=== PATIENT | male | born 1950 | race Caucasian/White ===

== ENCOUNTER → 2017-02-11 | Outpatient (CLI) | payer MEDICARE ==
[2015-11-13 17:10] VITALS: BP 118/63
[~2017-02-11] MED LIST: ASPI-482 PO; LISI10TA2 PO; MULT-208 PO
--- NOTE | 2017-02-11 09:51 | KCIC ---
5 view lumbar spine dated 02/11/2017. No comparison available. Clinical indication: Low back pain for months. FINDINGS: AP, lateral, bilateral black and coned-down views of lumbosacral junction were obtained. 5 nonrib-bearing vertebral levels. Vertebral body heights are maintained. Mild disc space narrowing at L4-L5. Mild hypertrophic change of the superior and inferior endplates throughout. Moderate arthrosis lower lumbar apophyseal joints. No pars defects on the oblique views. IMPRESSION: 1. No acute radiographic abnormality. 2. Mild multilevel spondylosis. Electronically signed by: Wilian Moreno MD (02/11/2017 9:48 AM) [facility]
== END | disposition home or self-care (01) ==
LOC: KCIC 09:02
PROVIDERS: ATTEND Family Medicine
DX: M47.896 Other spondylosis, lumbar region (principal)
CPT/HCPCS: 72110

== ENCOUNTER → 2017-10-24 | Outpatient (CLI) | payer MEDICARE ==
[2017-10-24] MEDS: ZOLPIDEM 5 MG TABLET. PO (22:01)
== END | disposition home or self-care (01) ==
LOC: SLPLAB 18:27
DX: G47.33 Obstructive sleep apnea (adult) (pediatric) (principal)
CPT/HCPCS: 95810

== ENCOUNTER → 2018-07-05 | Outpatient (CLI) | payer MEDICARE ==
[2015-11-13 17:10] VITALS: BP 118/63
--- NOTE | 2018-07-05 14:33 | CARD ---
MR#: [id number] Date of Study: 07/05/2018 Ordering Physician: MARCOS BROWN, Referring Physician: MARCOS BROWN, Tech: Mago Espinoza APPROVED REPORT EXAM: Two-dimensional and M-mode echocardiogram with Doppler and color Doppler. Other Information Quality : AverageHR: 66bpm INDICATION Arrhythmia Hypertension/HCVD RISK FACTORS Hypertension Hyperlipidemia 2D DIMENSIONS RVDd3.4 (2.9-3.5cm)Left Atrium(2D)2.7 (1.6-4.0cm) IVSd0.9 (0.7-1.1cm)Aortic Root(2D)3.4 (2.0-3.7cm) LVDd4.5 (3.9-5.9cm)LVOT Diameter2.2 (1.8-2.4cm) PWd1.0 (0.7-1.1cm)LVDs2.5 (2.5-4.0cm) FS (%) 43.5 %SV68.1 ml Aortic Valve AoV Peak Marco.126.9cm/sAoV VTI26.4cm AO Peak GR.6.4mmHgLVOT Peak Marco.76.6cm/s LVOT VTI 17.10cmAO Mean GR.3mmHg COLETTE (VMAX)1.99hj0SWR (VTI)2.36cm2 Mitral Valve MV E Eslktfaf59.6cm/sMV DECEL TKWR212yu MV A Vfnrdyqs11.2cm/sMV YTA18td E/A Ratio0.8MVA (PHT)3.87cm2 TDI E/Lateral E'7.2E/Medial E'8.2 Pulmonary Valve PV Peak Bybxegtz952.4cm/sPV Peak Grad.5mmHg Tricuspid Valve TR P. Usbtbnob988ez/sRAP XYIOIHSF9vdQy TR Peak Gr.04hcBzGRWH27mnNh Pulmonary Vein S1 Izkshquo84.7cm/sD2 Frijpqzx19.7cm/s PVa xhhpwvyf126thdf LEFT VENTRICLE The left ventricle is normal size. There is normal left ventricular wall thickness. The left ventricu lar systolic function is normal and the ejection fraction is within normal range. The Ejection Fracti on is 50-55%. There is normal LV segmental wall motion. Transmitral Doppler flow pattern is Grade I-a bnormal relaxation pattern. RIGHT VENTRICLE The right ventricle is borderline dilated. There is normal right ventricular wall thickness. There is a possible device lead in the right ventricle. ATRIA The left atrium size is normal. The right atrium size is normal. The interatrial septum is intact wit h no evidence for an atrial septal defect or patent foramen ovale as noted on 2-D or Doppler imaging. AORTIC VALVE The aortic valve is normal in structure and function. Doppler and Color Flow revealed no significant aortic regurgitation. There is no significant aortic valvular stenosis. Calculated aortic valve area is 2.4 cm2 with maximum pressure gradient of 7 mmHg and mean pressure gradient of 4 mmHg. MITRAL VALVE The mitral valve is normal in structure and function. There is no evidence of mitral valve prolapse. There is no mitral valve stenosis. Doppler and Color-flow revealed trace mitral regurgitation. TRICUSPID VALVE The tricuspid valve is normal in structure and function. Doppler and Color Flow revealed trace tricus pid regurgitation. There is no tricuspid valve stenosis. PULMONIC VALVE The pulmonic valve is not well visualized. Doppler and Color Flow revealed trace pulmonic valvular re gurgitation. GREAT VESSELS The aortic root is normal in size. The IVC is normal in size and collapses >50% with inspiration. PERICARDIAL EFFUSION There is no evidence of significant pericardial effusion. Critical Notification Critical Value: No <Conclusion> The left ventricle is normal size. The left ventricular systolic function is normal and the ejection fraction is within normal range. The Ejection Fraction is 50-55%. There is no significant aortic valvular stenosis. Doppler and Color Flow revealed no significant aortic regurgitation. Doppler and Color-flow revealed trace mitral regurgitation. Doppler and Color Flow revealed trace tricuspid regurgitation. Signed by : Hamlet Carter MD Electronically Approved : 07/05/2018 14:31:35
== END | disposition home or self-care (01) ==
LOC: ECHO 10:25
PROVIDERS: ATTEND Family Medicine
DX: I10 Essential (primary) hypertension (principal); G47.33 Obstructive sleep apnea (adult) (pediatric); I49.5 Sick sinus syndrome; E78.5 Hyperlipidemia, unspecified
CPT/HCPCS: 93306

== ENCOUNTER 2019-01-07 15:46 | Emergency (ER) | payer MEDICARE ==
[~2019-01-07] VITALS: Ht 172.7 cm; Wt 86.2 kg
[2019-01-07] MEDS ORDERED: IV NORMAL SALINE 1000ML BAG 1,000 ML IV SCH (15:56)
--- NOTE | 2019-01-07 16:05 | PHYS DOC ---
Past Medical History Past Medical History: High Cholesterol, Hypertension Past Surgical History: Pacemaker, Other Additional Past Surgical Histo: LEFT WRIST SURGERY Alcohol Use: Rarely Drug Use: None Adult General Chief Complaint Chief Complaint: SHORTNESS OF BREATH HPI HPI Patient is a 68-year-old male who presents to the emergency department for evaluation. He states for the past 2 days, he has had some increasing shortness of breath, along with some lightheadedness, described mostly as lightheadedness, and worsened with standing up from bending over position. He also describes an occasional sense of rotation. He denies any vision changes, numbness, weakness, headache, or chest pain. Has not had any definite pleuritic chest pain. He has not had any cough. Other than as stated above, there are no alleviating, or exacerbating factors to his symptoms. The patient has done some work outside yesterday and today in the heat, but only for about an hour at a time. Review of Systems Review of Systems Constitutional: Denies fever or chills [] Eyes: Denies change in visual acuity, redness, or eye pain [] HENT: Denies nasal congestion or sore throat [] Respiratory: Denies cough or pleuritic pain[] Cardiovascular: The patient denies any chest pain, palpitations, or orthopnea [] GI: Denies abdominal pain, nausea, vomiting, bloody stools or diarrhea [] : Denies dysuria or hematuria [] Musculoskeletal: Denies back pain or joint pain [] Integument: Denies rash or skin lesions [] Neurologic: Denies headache, focal weakness or sensory changes [] Endocrine: Denies polyuria or polydipsia [] All other systems were reviewed and found to be within normal limits, except as documented in this note. Current Medications Current Medications Current Medications Medications (Trade) Dose Ordered Sig/Lou Start Time Stop Time Status Last Admin Dose Admin Info (CONTRAST GIVEN -- Rx MONITORING) 1 each PRN DAILY PRN 01/07/19 17:45 01/09/19 17:44 Iohexol (Omnipaque 350 Mg/ml) 75 ml 1X ONCE 01/07/19 17:30 01/07/19 17:31 DC 01/07/19 18:13 75 ML Sodium Chloride 1,000 ml @ 1,000 mls/hr Q1H 01/07/19 15:56 01/07/19 16:55 DC 01/07/19 15:56 1,000 MLS/HR Allergies Allergies Allergies Coded Allergies Type Severity Reaction Last Updated Verified nitroglycerin Allergy Intermediate HYPOTENSION 11/12/15 Yes Physical Exam Physical Exam PHYSICAL EXAM: CONSTITUTIONAL: Well developed, well nourished HEAD: normocephalic, atraumatic EENT: PERRL, EOMI. Conjunctivae normal color, sclerae non-icteric; moist mucous membranes. NECK: Supple, non-tender; no meningismus. LUNGS: Lungs CTA, breathing even and unlabored. Normal air movement. HEART: Regular rate and rhythm, no murmur CHEST: No deformity; non-tender ABDOMEN: The abdomen is soft, and non-tender, no masses or bruits. EXTREM: Normal ROM; no deformity, no calf tenderness. Normal pulses palpable in all extremities. There is no pedal edema. SKIN: No rash; no diaphoresis NEURO: Alert; normal speech and cognition; CN's grossly intact; strength grossly intact without focal deficit. BACK: No CVA TTP. Current Patient Data Vital Signs Vital Signs Date Time Temp Pulse Resp B/P (MAP) Pulse Ox O2 Delivery O2 Flow Rate FiO2 01/07/19 18:44 62 16 130/62 (84) 99 Room Air 01/07/19 16:25 98.8 98.8 Lab Values Laboratory Tests Test 01/07/19 16:16 White Blood Count 12.3 x10^3/uL (4.0-11.0) H Red Blood Count 5.44 x10^6/uL (4.30-5.70) Hemoglobin 16.5 g/dL (13.0-17.5) Hematocrit 47.8 % (39.0-53.0) Mean Corpuscular Volume 88 fL (79-100) Mean Corpuscular Hemoglobin 30 pg (25-35) Mean Corpuscular Hemoglobin Concent 35 g/dL (31-37) Red Cell Distribution Width 14.2 % (11.5-14.5) Platelet Count 330 x10^3/uL (140-400) Neutrophils (%) (Auto) 65 % (31-73) Lymphocytes (%) (Auto) 26 % (24-48) Monocytes (%) (Auto) 6 % (0-9) Eosinophils (%) (Auto) 2 % (0-3) Basophils (%) (Auto) 1 % (0-3) Neutrophils # (Auto) 8.0 x10^3uL (1.8-7.7) H Lymphocytes # (Auto) 3.2 x10^3/uL (1.0-4.8) Monocytes # (Auto) 0.8 x10^3/uL (0.0-1.1) Eosinophils # (Auto) 0.3 x10^3/uL (0.0-0.7) Basophils # (Auto) 0.1 x10^3/uL (0.0-0.2) D-Dimer (Lois) 0.58 ug/mlFEU (0.00-0.50) H Sodium Level 142 mmol/L (136-145) Potassium Level 4.8 mmol/L (3.5-5.1) Chloride Level 107 mmol/L (98-107) Carbon Dioxide Level 25 mmol/L (21-32) Anion Gap 10 (6-14) Blood Urea Nitrogen 20 mg/dL (8-26) Creatinine 1.4 mg/dL (0.7-1.3) H Estimated GFR (Cockcroft-Gault) 50.5 BUN/Creatinine Ratio 14 (6-20) Glucose Level 146 mg/dL (70-99) H Calcium Level 9.7 mg/dL (8.5-10.1) Magnesium Level 2.3 mg/dL (1.8-2.4) Total Bilirubin 0.4 mg/dL (0.2-1.0) Aspartate Amino Transferase (AST) 32 U/L (15-37) Alanine Aminotransferase (ALT) 54 U/L (16-63) Alkaline Phosphatase 108 U/L (46-116) Troponin I Quantitative < 0.017 ng/mL (0.000-0.055) VD-Cpy-J-Type Natriuretic Peptide 26 pg/mL (0-124) Total Protein 6.9 g/dL (6.4-8.2) Albumin 3.9 g/dL (3.4-5.0) Albumin/Globulin Ratio 1.3 (1.0-1.7) Lipase 309 U/L (73-393) Thyroid Stimulating Hormone (TSH) 1.528 uIU/mL (0.358-3.74) Free Thyroxine 1.10 ng/dL (0.76-1.46) Laboratory Tests 01/07/19 16:16 Laboratory Tests 01/07/19 16:16 EKG EKG [Normal sinus rhythm with a normal rate, normal axis, normal intervals, there are no acute ischemic ST/T changes.] Radiology/Procedures Radiology/Procedures [PROCEDURE: PORTABLE CHEST 1V EXAM: CHEST 1 VIEW. HISTORY: Shortness of breath. COMPARISON: 11/12/2015. FINDINGS: A frontal view of the chest is obtained. A left-sided pacemaker has its leads in the right atrium and right ventricle. There are no confluent infiltrates. Linear opacities in the left base likely indicate atelectasis or scarring. There is no pneumothorax or pleural effusion. The heart is not enlarged. There are atherosclerotic calcifications of the aorta. IMPRESSION: 1. No confluent infiltrates. Mild left basilar atelectasis. ] PROCEDURE: CT ANGIOGRAPHY CHEST CTA Chest with contrast: Clinical History: Shortness of breath. Elevated d-dimer. Axial helical images of the chest were obtained after the administration of 75 cc of IV Omni 350 and timed appropriately for a pulmonary arterial study. Conventional axial reconstruction was performed in addition to coronal, sagittal and bilateral oblique MIP (maximum intensity projection). This study was ordered to detect possible pulmonary embolism. There are no filling defects to suggest pulmonary embolism. The ascending thoracic aorta is mildly dilated to 4.1 cm. There is no dissection thrombus or stenosis. There is mild dependent changes posteriorly in the lungs. There is no mediastinal or hilar lymphadenopathy. Impression: 1. No evidence of pulmonary embolism. 2. Dilated ascending thoracic aorta. Course & Med Decision Making Course & Med Decision Making Pertinent Labs and Imaging studies reviewed. (See chart for details) []7:00 PM: The patient's condition remains stable. He is feeling better at this time. I discussed the uncertain etiology of his symptoms, as well as incidental findings of a dilated ascending aorta and the need for close follow-up with his ui lead developer for further outpatient evaluation and management. We discussed return precautions in detail. Dragon Disclaimer Dragon Disclaimer This electronic medical record was generated, in whole or in part, using a voice recognition dictation system. Departure Departure Impression: Primary Impression: Fatigue Additional Impression: Malaise Disposition: 01 HOME, SELF-CARE Condition: STABLE Referrals: MARCOS BROWN MD (PCP) SARA STACY MD Patient Instructions: Dehydration, Adult, Fatigue, Weakness Additional Instructions: Drink plenty fluids. The CT scan done today showed dilation of the ascending aorta, and further evaluation as an outpatient is warranted to determine appropriate management. Please contact her ui lead developer for further follow-up. Problem Qualifiers SYBIL MACHADO MD Jan 07, 2019 16:05
[2019-01-07 16:22] LABS: BASO # 0.1 x10^3/uL (0.0-0.2); BASO % 1 % (0-3); EOS # 0.3 x10^3/uL (0.0-0.7); EOS % 2 % (0-3); HEMATOCRIT 47.8 % (39.0-53.0); HEMOGLOBIN 16.5 g/dL (13.0-17.5); LYMPH # 3.2 x10^3/uL (1.0-4.8); LYMPH % 26 % (24-48); MEAN CORPUSCULAR HEMOGLOBIN 30 pg (25-35); MEAN CORPUSCULAR HGB CONC 35 g/dL (31-37); MEAN CORPUSCULAR VOLUME 88 fL (79-100); MONO # 0.8 x10^3/uL (0.0-1.1); MONO % 6 % (0-9); NEUT % 65 % (31-73); PLATELET COUNT 330 x10^3/uL (140-400); RED BLOOD COUNT 5.44 x10^6/uL (4.30-5.70); RED CELL DISTRIBUTION WIDTH 14.2 % (11.5-14.5); WHITE BLOOD COUNT 12.3 x10^3/uL (4.0-11.0)
[2019-01-07 16:44] LABS: CALCIUM 9.7 mg/dL (8.5-10.1); CREATININE 1.4 mg/dL (0.7-1.3); GFR 50.5; POTASSIUM 4.8 mmol/L (3.5-5.1)
[2019-01-07 16:49] LABS: ALBUMIN 3.9 g/dL (3.4-5.0); ALBUMIN/GLOBULIN RATIO 1.3 (1.0-1.7); MAGNESIUM 2.3 mg/dL (1.8-2.4); TOTAL BILIRUBIN 0.4 mg/dL (0.2-1.0); TOTAL PROTEIN 6.9 g/dL (6.4-8.2)
[2019-01-07 16:56] LABS: FREE T4 1.1 ng/dL (0.76-1.46); THYROID STIM HORMONE (TSH) 1.528 uIU/mL (0.358-3.74)
--- NOTE | 2019-01-07 17:22 | RAD ---
EXAM: CHEST 1 VIEW. HISTORY: Shortness of breath. COMPARISON: 11/12/2015. FINDINGS: A frontal view of the chest is obtained. A left-sided pacemaker has its leads in the right atrium and right ventricle. There are no confluent infiltrates. Linear opacities in the left base likely indicate atelectasis or scarring. There is no pneumothorax or pleural effusion. The heart is not enlarged. There are atherosclerotic calcifications of the aorta. IMPRESSION: 1. No confluent infiltrates. Mild left basilar atelectasis. Electronically signed by: Gracy Guerra MD (01/07/2019 5:20 PM) [facility]
[2019-01-07] MEDS ORDERED: IOHEXOL 350 MG/ML 100 ML VIAL. IV ONE (17:30)
[2019-01-07] MEDS ORDERED: CONTRAST GIVEN. MC PRN (17:45)
--- NOTE | 2019-01-07 18:24 | EKG ---
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
--- NOTE | 2019-01-07 18:32 | RAD ---
CTA Chest with contrast: Clinical History: Shortness of breath. Elevated d-dimer. Axial helical images of the chest were obtained after the administration of 75 cc of IV Omni 350 and timed appropriately for a pulmonary arterial study. Conventional axial reconstruction was performed in addition to coronal, sagittal and bilateral oblique MIP (maximum intensity projection). This study was ordered to detect possible pulmonary embolism. There are no filling defects to suggest pulmonary embolism. The ascending thoracic aorta is mildly dilated to 4.1 cm. There is no dissection thrombus or stenosis. There is mild dependent changes posteriorly in the lungs. There is no mediastinal or hilar lymphadenopathy. Impression: 1. No evidence of pulmonary embolism. 2. Dilated ascending thoracic aorta. PQRS Compliance Statement: One or more of the following individualized dose reduction techniques were utilized for this examination: 1. Automated exposure control 2. Adjustment of the mA and/or kV according to patient size 3. Use of iterative reconstruction technique Electronically signed by: Ollie Dunn III, MD (01/07/2019 6:29 PM) [id number]
[2019-01-07 18:47] VITALS: BP 132/71
== END 2019-01-07 19:20 | disposition home or self-care (01) ==
LOC: ER 15:46
DX: R53.81 Other malaise (principal); R53.83 Other fatigue; R06.02 Shortness of breath; R42 Dizziness and giddiness; E78.00 Pure hypercholesterolemia, unspecified; I10 Essential (primary) hypertension; Z95.0 Presence of cardiac pacemaker; Z88.8 Allergy status to other drugs, medicaments and biological substances
CPT/HCPCS: 36415; 71045; 71275; 80053; 83690; 83735; 83880; 84439; 84443; 84484; 85025; 85379; 93005; 96360; 99285; J7030; Q9967

== ENCOUNTER → 2019-01-18 | Outpatient (CLI) | payer MEDICARE ==
[2019-01-07 18:47] VITALS: BP 132/71
--- NOTE | 2019-01-18 10:15 | RAD ---
SCAN OF ABDOMINAL AORTA History: Enlarged aorta on CT, hypertension, history of tobacco use Comparison: None. Findings: Multiple sonographic images of the abdominal aorta are submitted to include grayscale, color, and duplex spectral analysis waveform images. Maximal abdominal aortic caliber proximally is 2.4 cm, 1.9 cm near mid segment, and 1.5 cm distally. Right common iliac artery measured 0.9 cm, left 0.9 cm. There is scattered plaque. Patent inferior vena cava is visualized. Impression: 1. No abdominal aortic aneurysm is demonstrated. Electronically signed by: Jeff Salcido MD (01/18/2019 10:12 AM) [facility]
== END | disposition home or self-care (01) ==
LOC: US 06:36
PROVIDERS: ATTEND Family Medicine
DX: I70.8 Atherosclerosis of other arteries (principal); I77.89 Other specified disorders of arteries and arterioles; I10 Essential (primary) hypertension; Z72.0 Tobacco use
CPT/HCPCS: 76770

== ENCOUNTER → 2019-07-20 | Outpatient (CLI) | payer MEDICARE ==
--- NOTE | 2019-07-20 11:02 | CARD ---
MR#: [id number] Date of Study: 07/20/2019 Ordering Physician: SARA STACY, Referring Physician: SARA STACY, Tech: Ofe Antonio [facility] APPROVED REPORT EXAM: Two-dimensional and M-mode echocardiogram with Doppler and color Doppler. Other Information Quality : Good INDICATION Ascending Aortic Aneursym 2D DIMENSIONS RVDd3.0 (2.9-3.5cm)Left Atrium(2D)3.2 (1.6-4.0cm) IVSd1.3 (0.7-1.1cm)Aortic Root(2D)3.5 (2.0-3.7cm) LVDd3.9 (3.9-5.9cm)LVOT Diameter2.0 (1.8-2.4cm) PWd1.1 (0.7-1.1cm)LVDs2.1 (2.5-4.0cm) FS (%) 30.0 %SV51.1 ml LVEF(%)60.0 (>50%) Aortic Valve AoV Peak Marco.140.0cm/sAoV VTI27.1cm AO Peak GR.7.8mmHgLVOT Peak Marco.87.8cm/s AO Mean GR.4mmHgAVA (VMAX)2.00cm2 COLETTE (VTI)2.30cm2 Mitral Valve MV E Eijhbrjd63.3cm/sMV DECEL IWYZ570di MV A Imrgstcj842.2cm/sE/A Ratio0.7 Tricuspid Valve TR P. Impnznva958pa/sRAP DBYAILXP3rmHj TR Peak Gr.69gjCeNOLS83rhVe Pulmonary Vein S1 Eomxbvps17.9cm/sD2 Ctfmucmq47.3cm/s LEFT VENTRICLE The left ventricle is normal size. There is mild asymmetric septal hypertrophy. The left ventricular systolic function is normal and the ejection fraction is within normal range. The Ejection Fraction i s 55-60%. There is normal LV segmental wall motion. Transmitral Doppler flow pattern is Grade I-abnor mal relaxation pattern. RIGHT VENTRICLE The right ventricle is normal size. The right ventricular systolic function is normal. ATRIA The left atrium size is normal. The right atrium size is normal. The interatrial septum is intact wit h no evidence for an atrial septal defect or patent foramen ovale as noted on 2-D or Doppler imaging. AORTIC VALVE The aortic valve is probably trileaflet. Doppler and Color Flow revealed no significant aortic regurg itation. There is no significant aortic valvular stenosis. MITRAL VALVE The mitral valve is normal in structure and function. There is no evidence of mitral valve prolapse. There is no mitral valve stenosis. Doppler and Color-flow revealed trace mitral regurgitation. TRICUSPID VALVE The tricuspid valve is normal in structure and function. Doppler and Color Flow revealed trace to mil d tricuspid regurgitation. The PA pressure was estimated at 15 mmHg. There is no tricuspid valve sten osis. PULMONIC VALVE The pulmonic valve is not well visualized. Doppler and Color Flow revealed trace pulmonic valvular re gurgitation. There is no pulmonic valvular stenosis. GREAT VESSELS The aortic root is normal in size. The ascending aorta is moderately dilated at 4.1 cm. The IVC is no rmal in size and collapses >50% with inspiration. PERICARDIAL EFFUSION There is no evidence of significant pericardial effusion. Critical Notification Critical Value: No <Conclusion> The left ventricular systolic function is normal and the ejection fraction is within normal range. Th e Ejection Fraction is 55-60%. There is normal LV segmental wall motion. The ascending aorta is moderately dilated at 4.1 cm. Signed by : Sara Stacy, Electronically Approved : 07/20/2019 11:02:10
== END | disposition home or self-care (01) ==
LOC: ECHO 09:18
PROVIDERS: ATTEND Internal Medicine Cardiovascular Disease
DX: I36.1 Nonrheumatic tricuspid (valve) insufficiency (principal); I51.7 Cardiomegaly; I71.2 Thoracic aortic aneurysm, without rupture
CPT/HCPCS: 93306

== ENCOUNTER → 2020-10-21 | Outpatient (CLI) | payer MEDICARE ==
[~2020-10-21] MED LIST changes: +LISI10TA16 PO; -LISI10TA2 PO
--- NOTE | 2020-10-21 11:56 | CARD ---
MR#: [id number] Date of Study: 10/21/2020 Ordering Physician: SARA STACY, Referring Physician: SARA STACY, Tech: Mindy Kiran [facility] APPROVED REPORT EXAM: Two-dimensional and M-mode echocardiogram with Doppler and color Doppler. Other Information Quality : GoodHR: 71bpm Rhythm : NSR INDICATION Hypertension/HCVD RISK FACTORS Hypertension Hyperlipidemia 2D DIMENSIONS RVDd2.9 (2.9-3.5cm)Left Atrium(2D)3.1 (1.6-4.0cm) IVSd1.1 (0.7-1.1cm)Aortic Root(2D)3.8 (2.0-3.7cm) LVDd4.3 (3.9-5.9cm)LVOT Diameter1.9 (1.8-2.4cm) PWd1.2 (0.7-1.1cm)LVDs2.6 (2.5-4.0cm) FS (%) 38.1 %SV55.7 ml LVEF(%)68.6 (>50%) Aortic Valve AoV Peak Marco.126.6cm/sAoV VTI36.5cm AO Peak GR.6.4mmHgLVOT Peak Marco.72.8cm/s AO Mean GR.3mmHgAVA (VMAX)1.58cm2 Mitral Valve MV E Ouzksjxh88.3cm/sMV DECEL RYIU872qr MV A Zjlfkuzm68.5cm/sE/A Ratio0.8 Pulmonary Valve PV Peak Ebdacjel529.3cm/s Tricuspid Valve TR P. Tuozehwl292gi/sTR Peak Gr.27mmHg LEFT VENTRICLE The left ventricle is normal size. There is borderline concentric left ventricular hypertrophy. The l eft ventricular systolic function is normal. Estimated ejection fraction 55-60%. There is normal LV segmental wall motion. The left ventricular diastolic function and filling is normal for age. RIGHT VENTRICLE The right ventricle is normal size. There is normal right ventricular wall thickness. The right ventr icular systolic function is normal. ATRIA The left atrium size is normal. The right atrium size is normal. The interatrial septum is intact wit h no evidence for an atrial septal defect or patent foramen ovale as noted on 2-D or Doppler imaging. AORTIC VALVE The aortic valve is normal in structure and function. Doppler and Color Flow revealed no significant aortic regurgitation. There is no significant aortic valvular stenosis. MITRAL VALVE The mitral valve is normal in structure and function. There is no evidence of mitral valve prolapse. There is no mitral valve stenosis. Doppler and Color-flow revealed mild mitral regurgitation. TRICUSPID VALVE The tricuspid valve is normal in structure and function. Doppler and Color Flow revealed trace tricus pid regurgitation. Estimated PAP 30 mmHg. There is no tricuspid valve stenosis. PULMONIC VALVE The pulmonary valve is normal in structure and function. Doppler and Color Flow revealed mild pulmoni c valvular regurgitation. GREAT VESSELS The aortic root is mildly enlarged. The ascending aorta is Mildly dilated. The IVC is normal in size and collapses >50% with inspiration. PERICARDIAL EFFUSION There is no evidence of significant pericardial effusion. Critical Notification Critical Value: No <Conclusion> The left ventricular systolic function is normal. Estimated ejection fraction 55-60%. There is normal LV segmental wall motion. Mild mitral regurgitation. Trace tricuspid regurgitation. Estimated PAP 30 mmHg. There is no evidence of significant pericardial effusion. Signed by : Ty Che, Electronically Approved : 10/21/2020 11:56:03
== END ==
LOC: ECHO 10:32
PROVIDERS: ATTEND Internal Medicine Cardiovascular Disease
DX: I08.8 Other rheumatic multiple valve diseases (principal); I77.810 Thoracic aortic ectasia; I11.9 Hypertensive heart disease without heart failure
CPT/HCPCS: 93306